=== PATIENT | female | born 1965 | race Caucasian/White ===

== ENCOUNTER 2019-07-20 17:24 | Emergency (ER) | payer OTHER ==
[2019-07-20 18:28] VITALS: BP 128/78
[2019-07-20 18:37] LABS: Influenza A Molecular POSITIVE (Negative)
--- NOTE | 2019-07-20 18:41 | UC ---
FLU HPI - HPI Summary HPI Summary: 53-year-old female presenting with cough and chest congestion 3 days. Also notes nasal congestion and sinus pressure. States cough is productive of clear sputum at times. Denies sore throat. Denies shortness of breath and wheezing. Denies nausea and vomiting. Denies fever, chills, body aches. Taking Mucinex for symptom relief. Former smoker. Denies history of asthma or COPD. - History of Current Complaint Chief Complaint: UCGeneralIllness Stated Complaint: COUGH/CONGESTION/SINUS Hx Obtained From: Patient Hx Last Menstrual Period: 07/11/15. PERIODS HAVE BEEN IRREGULAR. Pain Intensity: 0 Pain Scale Used: 0-10 Numeric - Allergy/Home Medications Allergies/Adverse Reactions: Allergies Allergy/AdvReac Type Severity Reaction Status Date / Time No Known Allergies Allergy Verified 07/20/19 18:21 Home Medications: Home Medications Fluticasone NASAL SPRAY 50MCG* [Flonase NASAL SPRAY 50MCG*] 2 spray BOTH NARES DAILY PRN 08/21/15 [History Confirmed 07/20/19] LoraTADine TAB(NF) [Claritin TAB*] 10 mg PO DAILY PRN 08/21/15 [History Confirmed 07/20/19] Naproxen TAB* [Naprosyn TAB*] 500 mg PO Q8H PRN 08/21/15 [History Confirmed ] Albuterol HFA INHALER* [Ventolin HFA Inhaler*] 1 - 2 puff INH Q6H PRN #1 mdi [Rx] Aspirin [Aspirin EC] 81 mg PO DAILY 07/20/19 [History Confirmed 07/20/19] Atorvastatin* [Lipitor 10 MG*] 10 mg PO DAILY 07/20/19 [History Confirmed ] Cholecalciferol TAB* [Vitamin D TAB*] 2,000 unit PO DAILY 07/20/19 [History Confirmed 07/20/19] Guaifenesin/Dextromethorphan [Mucinex Dm ER 1,200-60 mg Tab] 1 dose PO ONCE [History Confirmed 07/20/19] PMH/Surg Hx/FS Hx/Imm Hx - Surgical History Surgical History: Yes Surgery Procedure, Year, and Place: TUMOR OF PAROTID GLANDS REMOVED 1996. ganglion cyst removal R wrist 1999 - Family History Known Family History: Positive: Unknown - Social History Alcohol Use: Rare Substance Use Type: None Smoking Status (MU): Former Smoker Have You Smoked in the Last Year: No When Did the Patient Quit Smoking/Using Tobacco: February 2003 Review of Systems All Other Systems Reviewed And Are Negative: Yes Constitutional: Positive: Negative ENT: Positive: Negative, Sinus Congestion, Sinus Pain/Tenderness Respiratory: Positive: Cough - clear sputum, Other - "chest congestion". Negative: Shortness Of Breath Cardiovascular: Positive: Negative Gastrointestinal: Positive: Negative Musculoskeletal: Positive: Negative Neurological/Mental Status: Positive: Headache - "sinus headache" Physical Exam - Summary Physical Exam Summary: Vital Signs Reviewed: Yes A+Ox3, no distress Eyes: Conjunctiva Clear ENT: Hearing grossly normal, TM x 2 clear, moist, uvula midline, no exudate, no erythema Neck: Positive: Supple Respiratory: Positive: No respiratory distress, No accessory muscle use + CTA throughout no w/r Cardiovascular: RRR nl s1, s2 no m/r Musculoskeletal Exam: WYATT x 4 without difficulty Neurological: Positive: Alert Psychological: Positive: age appropriate behavior Skin: Positive: no rash, no ecchymosis Vital Signs: Initial Vital Signs Temp 97.8 F 07/20/19 18:23 Pulse 72 07/20/19 18:23 Resp 14 07/20/19 18:23 BP 128/78 07/20/19 18:23 Pulse Ox 96 07/20/19 18:23 Flu Course/Dx - Course Course Of Treatment: Negative rapid flu. Discussed influenza and symptomatic treatment with patient. No tamiflu offered, as patient has been symptomatic for at least 72 hours. I provided patient with inhaler for chest tightness. Instructed to follow up with pcp if needed. Patient voice understanding and agreed with treatment plan. - Differential Dx/Diagnosis Differential Diagnosis/HQI/PQRI: Influenza, Upper Respiratory Infection Provider Diagnosis: Influenza A Discharge ED - Sign-Out/Discharge Documenting (check all that apply): Patient Departure All imaging exams completed and their final reports reviewed: No Studies - Discharge Plan Condition: Stable Disposition: HOME Prescriptions: Albuterol HFA INHALER* [Ventolin HFA Inhaler*] 1 - 2 puff INH Q6H PRN #1 mdi PRN Reason: Sob/Wheezing Patient Education Materials: Influenza (ED) Referrals: Robbie Noble DO [Primary Care Provider] - If Needed Additional Instructions: As discussed, you tested positive for influenza today. Use the albuterol inhaler as needed for shortness of breath and wheezing. You may continue with mucinex for symptom relief. Get plenty of rest and increase your fluid intake. Follow up with your primary care provider with any new or worsening symptoms. - Billing Disposition and Condition Condition: STABLE Disposition: Home
== END 2019-07-20 19:02 | disposition home or self-care (01) ==
LOC: UCCORT 17:24
DX: J10.1 Influenza due to other identified influenza virus with other respiratory manifestations (principal); Z87.891 Personal history of nicotine dependence
CPT/HCPCS: 99212; G0463